=== PATIENT | female | born 1940 | race Caucasian/White ===

== ENCOUNTER → 2016-06-01 | Outpatient (CLI) | payer MEDICARE ==
--- NOTE | 2016-06-03 12:28 | RADONC ---
RADIATION ONCOLOGY FOLLOWUP NOTE DATE: 06/01/2016 CHART NUMBER: [id number] DIAGNOSIS: Left breast cancer STAGE: Stage is I A, [id number] ECOG PERFORMANCE STATUS: 1 FOLLOWUP NOTE: Ms. 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 The patient presents today reporting that she is doing generally quite well with no complaints at this time related to her radiation therapy or disease. She reports that she did have some atrial fibrillation and congestive heart failure. She was hospitalized. She is presently on a surveillance monitor. She has no complaints, however related to her radiation. The patient's review of systems is positive for atrial fibrillation, which is improved. This is thought to be secondary to her Adriamycin. It is otherwise noncontributory. REVIEW OF SYSTEMS: The patient's review of systems is noncontributory. Denies nausea, vomiting, fevers, chills, night sweats, diplopia, headaches, anxiety or depression, anorexia, weight loss, visual disturbances, chest pain, urinary or bowel difficulties, bone pain, or neurological problems. PHYSICAL EXAMINATION: The patient is a well-developed, well-nourished 75-year-old female in no acute distress. HEENT exam is normocephalic, atraumatic. Extraocular movements are intact. There is no palpable cervical, supraclavicular, infraclavicular, axillary, or inguinal lymphadenopathy present. Lungs are clear to auscultation and percussion. Heart has a regular rate and rhythm. Abdomen is benign with no hepatosplenomegaly, masses, or tenderness. Breast examination reveals no masses or discharge bilaterally. Skeletal examination reveals no tenderness to pressure or percussion of the bony skeleton. Extremities reveal no clubbing, cyanosis, or edema. Neurologic exam is grossly intact, as is the remainder of the physical examination. ASSESSMENT: The patient is clinically EARL at this time and will be seen by us again in 6 months for further followup. She will also continued to be followed by her other physicians as well. She is scheduled for a mammogram in July. I have reviewed the patient's treatment plans and the heart was largely out of our treatment field. Received a very minimal dose of radiation. I do agree that this cardiac issue is most likely secondary to her Adriamycin and not related to radiation. Indeed the median dose of the heart was only 67 cGy. Edited: 06/03/2016 1255 vlm cc: *Dr. Chauhan *Dr. Miki Sierra MD, [facility] *Dr. Rachell Cordoba
== END ==
LOC: M ONCR 14:26
PROVIDERS: ATTEND Radiology Radiation Oncology
DX: C50.312 Malignant neoplasm of lower-inner quadrant of left female breast (principal)

== ENCOUNTER → 2017-08-25 | Outpatient (CLI) | payer MEDICARE | END | disposition home or self-care (01) | LOC: M IRPRO 10:39 | DX: Z45.2 Encounter for adjustment and management of vascular access device (principal); C50.919 Malignant neoplasm of unspecified site of unspecified female breast | CPT/HCPCS: 36590 ==

== ENCOUNTER 2018-12-31 11:43 | Day surgery (SDC) | payer MEDICARE ==
[~2018-12-31] VITALS: Ht 170.2 cm; Wt 96.6 kg
[~2018-12-31 11:43] MED LIST: B COTAB3 PO; CALC500C16 PO; CHOL100029 PO; FISH1000 PO; FURO40TA2 PO; GLUC1CAP10 PO; MAG100TA PO; METO1TAB7 PO; POTA10808 PO; PROBCAP14 PO; RA T500C2 PO; RAMI1CAP26 PO; VITA500T PO; XARE20TA PO
[2018-12-31] MEDS ORDERED: NS 1,000 ML IV ONE (12:30)
[2018-12-31] MEDS ORDERED: PROPOFOL 200 MG/20 ML VIAL As Ordered ONE (13:39)
[2018-12-31] MEDS ORDERED: LIDOCAINE 2% INJ 100 MG/5 ML SDV (FOR ANES.) As Ordered ONE (13:39)
--- NOTE | 2018-12-31 14:11 | ROOR ---
Patient Name: Elin Luciano Procedure Date: 12/31/2018 1:31 PM Date of : 1940 Age: 78 Room: [facility] Gender: Female Note Status: Finalized Procedure: Colonoscopy Indications: High risk colon cancer surveillance: Personal history of colonic polyps Providers: Niraj Colon MD Referring MD: TRISH KEANE MD Requesting Provider: Medicines: Monitored Anesthesia Care Complications: No immediate complications. Procedure: Pre-Anesthesia Assessment: - Prior to the procedure, a History and Physical was performed, and patient medications and allergies were reviewed. The patient is competent. The risks and benefits of the procedure and the sedation options and risks were discussed with the patient. All questions were answered and informed consent was obtained. Patient identification and proposed procedure were verified by the physician, the nurse and the anesthesiologist in the procedure room. Mental Status Examination: alert and oriented. Airway Examination: normal oropharyngeal airway and neck mobility. Respiratory Examination: clear to auscultation. CV Examination: normal. Prophylactic Antibiotics: The patient does not require prophylactic antibiotics. Prior Anticoagulants: The patient has taken Xarelto (rivaroxaban), last dose was 3 days prior to procedure. ASA Grade Assessment: III - A patient with severe systemic disease. After reviewing the risks and benefits, the patient was deemed in satisfactory condition to undergo the procedure. The anesthesia plan was to use monitored anesthesia care (MAC). Immediately prior to administration of medications, the patient was re-assessed for adequacy to receive sedatives. The heart rate, respiratory rate, oxygen saturations, blood pressure, adequacy of pulmonary ventilation, and response to care were monitored throughout the procedure. The physical status of the patient was re-assessed after the procedure. The Colonoscope was introduced through the anus and advanced to the terminal ileum, with identification of the appendiceal orifice and IC valve. The colonoscopy was performed without difficulty. The patient tolerated the procedure well. The quality of the bowel preparation was good. The terminal ileum, ileocecal valve, appendiceal orifice, and rectum were photographed. Scope insertion time was 3 minutes. Scope withdrawal time was 8 minutes. The total duration of the procedure was 11 minutes. Findings: The perianal and digital rectal examinations were normal. The terminal ileum appeared normal. Two sessile polyps were found in the descending colon. The polyps were 5 to 6 mm in size. These polyps were removed with a cold snare. Resection and retrieval were complete. Verification of patient identification for the specimen was done by the physician and nurse using the patient's name, date and medical record number. Estimated blood loss was minimal. Scattered medium-mouthed diverticula were found from sigmoid to hepatic flexure. There was no evidence of diverticular bleeding. Non-bleeding external and internal hemorrhoids were found during retroflexion. The hemorrhoids were medium-sized. Impression: - The examined portion of the ileum was normal. - Two 5 to 6 mm polyps in the descending colon, removed with a cold snare. Resected and retrieved. - Moderate diverticulosis from sigmoid to hepatic flexure. There was no evidence of diverticular bleeding. - Non-bleeding external and internal hemorrhoids. Recommendation: - Patient has a contact number available for emergencies. The signs and symptoms of potential delayed complications were discussed with the patient. Return to normal activities tomorrow. Written discharge instructions were provided to the patient. - High fiber diet. - Resume Xarelto (rivaroxaban) at prior dose tomorrow. Refer to primary physician for further adjustment of therapy. - Continue present medications. - Await pathology results. - Repeat colonoscopy in 5 years for surveillance based on pathology results and depending on clinical and functional status. - Telephone GI clinic for pathology results in 2 weeks. - Return to primary care physician. Niraj Colon MD Niraj Colon MD 12/31/2018 2:10:40 PM Electronically signed by Niraj Colon MD Number of Addenda: 0 Note Initiated On: 12/31/2018 1:31 PM Estimated Blood Loss: Estimated blood loss was minimal.
[2018-12-31 14:33] VITALS: BP 145/87
== END 2018-12-31 14:35 | disposition home or self-care (01) ==
LOC: M OPP 11:43
PROVIDERS: ATTEND Internal Medicine Gastroenterology
DX: Z09 Encounter for follow-up examination after completed treatment for conditions other than malignant neoplasm (principal); Z86.010 Personal history of colon polyps; K64.8 Other hemorrhoids; D12.4 Benign neoplasm of descending colon; K57.30 Diverticulosis of large intestine without perforation or abscess without bleeding; Z79.899 Other long term (current) drug therapy; Z88.5 Allergy status to narcotic agent; Z91.040 Latex allergy status; Z91.018 Allergy to other foods